=== PATIENT | male | born 1930 | race Caucasian/White ===

== ENCOUNTER 2016-07-03 08:28 | Day surgery (SDC) | payer MEDICARE ==
--- NOTE | 2016-07-02 23:36 | Pre-Procedure Note/Attestation ---
Pre-Procedure Note/Attestation Complete Prior to Procedure Planned Procedure: right - Removal of cataract and placement of intraocular lens, RIGHT EYE Procedure Narrative: Removal of cataract and placement of intraocular lens, RIGHT EYE Indications for Procedure Pre-Operative Diagnosis: Cataract, senile, right eye Attestation I attest that I discussed the nature of the procedure; its benefits; risks and complications; and alternatives (and the risks and benefits of such alternatives ), prior to the procedure, with the patient (or the patient's legal welding equipment sales representative). I attest that, if there was a reasonable possibility of needing a blood transfusion, the patient (or the patient's legal welding equipment sales representative) was given the [place] Department [employer] Services standardized written summary, pursuant to the [place] Blood Safety Act ([place] Health and Safety Code # 1645, as amended). I attest that I re-evaluated the patient just prior to the surgery and that there has been no change in the patient's H&P, except as documented below: Luis Alberto Veliz MD July 02, 2016 23:36
[2016-07-03] VITALS (9 sets, daily range): BP systolic 142–165; BP diastolic 71–90
[~2016-07-03] VITALS: Ht 182.9 cm; Wt 86.2 kg
[2016-07-03] MEDS ORDERED: TAMSULOSIN HCL0.4 MG ORAL (09:42)
[2016-07-03] MEDS ORDERED: PROSCAR5 MG ORAL (09:42)
[2016-07-03] MEDS ORDERED: LIVALO2 MG PO (09:42)
[2016-07-03] MEDS ORDERED: LEXAPRO10 MG ORAL (09:42)
[2016-07-03] MEDS ORDERED: VITAMIN E400 UNI6 PO (09:42)
[2016-07-03] MEDS ORDERED: LOSARTAN POTASS50 MG ORAL (09:42)
[2016-07-03] MEDS ORDERED: ASPIR 8181 MG ORAL (09:42)
[2016-07-03] MEDS ORDERED: VITAMIN D1000 UNI1 ORAL (09:42)
[2016-07-03] MEDS ORDERED: FLECAINIDE ACE100 MG ORAL (09:42)
[2016-07-03] MEDS ORDERED: WARFARIN SODIUM5 MG ORAL (09:42)
[2016-07-03] MEDS ORDERED: ANTIOXIDANT SO1 EACH PO (09:44)
[2016-07-03] MEDS ORDERED: LORATADINE10 M2 PO (09:44)
[2016-07-03] MEDS: Akten 3.5% 1ml Btl RIGHT EYE SCH ×3 (10:16→10:33)
[2016-07-03] MEDS ORDERED: Akten 3.5% 1ml Btl ONE (10:17)
[2016-07-03] MEDS ORDERED: Cyclopentolate 1% Opth Sol ONE (10:17)
[2016-07-03] MEDS ORDERED: Gatifloxacin Opth Solution 0.5% ONE (10:17)
[2016-07-03] MEDS ORDERED: Flurbiprofen 0.03% Opth Sol 2.5ml ONE (10:17)
[2016-07-03] MEDS ORDERED: Phenylephrine 10% Opth Soln 5ml ONE (10:17)
[2016-07-03] MEDS: Flurbiprofen 0.03% Opth Sol 2.5ml RIGHT EYE SCH ×3 (10:20→10:33)
[2016-07-03] MEDS: Cyclopentolate 1% Opth Sol RIGHT EYE SCH ×3 (10:20→10:33)
[2016-07-03] MEDS: Gatifloxacin Opth Solution 0.5% RIGHT EYE SCH ×3 (10:21→10:34)
[2016-07-03] MEDS: Phenylephrine 10% Opth Soln 5ml RIGHT EYE SCH ×3 (10:21→10:34)
[2016-07-03] MEDS ORDERED: BSS 500ml btl ONE (10:54)
[2016-07-03] MEDS ORDERED: Lidocaine 1% MPF 10mg/ml 5ml ONE (10:54)
[2016-07-03] MEDS ORDERED: Maxitrol Opth Oint 3.5gm ONE (10:54)
[2016-07-03] MEDS ORDERED: Tetracaine 0.5% Opth Soln ONE ×2 (10:55→12:13)
[2016-07-03] MEDS ORDERED: Timolol 0.5% Op Soln 2.5ml ONE (10:55)
[2016-07-03] MEDS ORDERED: Dexamethasone 4mg/ml vial ONE (10:55)
[2016-07-03] MEDS ORDERED: Lidocaine 2% MPF 5ml Vial INJ ONE (10:56)
[2016-07-03] MEDS ORDERED: EPINEPHrine 1mg/1ml Amp ONE ×2 (10:56→11:50)
[2016-07-03] MEDS ORDERED: Acetylcholine Injection (OR) ONE (10:57)
[2016-07-03] MEDS ORDERED: Sodium Hyaluronate 14 mg/ml 0.85ml ONE (10:57)
[2016-07-03] MEDS ORDERED: Bupivacaine 0.75% 30ml vial INJ ONE (10:57)
[2016-07-03] MEDS ORDERED: BSS 15ml BTL ONE ×2 (10:57→11:50)
[2016-07-03] MEDS ORDERED: Povidone-Iodine 5% opth solution ONE (10:58)
[2016-07-03] MEDS ORDERED: LR 1000ml ONE (11:45)
[2016-07-03] MEDS ORDERED: Midazolam 2mg/2ml Inj ONE (11:45)
[2016-07-03] MEDS ORDERED: fentaNYL 100 mcg/2 mL IV ONE (11:45)
[2016-07-03] MEDS ORDERED: NS Irrig 1000ml ONE (11:45)
[2016-07-03] MEDS ORDERED: Propofol 10mg/ml 20ml IV ONE (11:45)
[2016-07-03] MEDS ORDERED: Sterile Water Irrig 1000ml IRRIG ONE (11:45)
[2016-07-03] MEDS ORDERED: Lidocaine 4% Amp ONE (11:50)
--- NOTE | 2016-07-03 11:50 | Anethesia Preoperative Eval ---
Anesthesia Pre-op PMH/ROS General Date of Evaluation: July 03, 2016 Time of Evaluation: 11:40 Anesthesiologist: Latricia ASA Score: ASA 3 Mallampati Score Class I : Soft palate, uvula, fauces, pillars visible Class II: Soft palate, uvula, fauces visible Class III: Soft palate, base of uvula visible Class IV: Only hard plate visible Mallampati Classification: Class II Surgeon: Keren Diagnosis: R eye cataract Surgical Procedure: R eye cataract extraction Anesthesia History: none Family History: no anesthesia problems Allergies: Coded Allergies: IODINE (Verified Allergy, Severe, 07/03/16) throat and eyes swell, cannot breathe Medications: see eMAR Past Medical History Cardiovascular: Reports: CAD - stable coronary stent in place, HTN Pulmonary: Denies: COPD, REECE, asthma, other Gastrointestinal/Genitourinary: Reports: GERD, Denies: CRI, ESRD, other Neurologic/Psychiatric: Denies: CVA, TIA, dementia, depression/anxiety, other Endocrine: Denies: DM, hypothyroidism, other, steroids HEENT: Reports: cataract (L), cataract (R), Denies: MARSHALL (L), MARSHALL (R), glaucoma, other Hematology/Immune: Denies: DVT, anemia, bleeding disorder, other Musculoskeletal/Integumentary: Reports: DJD, Denies: DDD, OA, RA, edema, other PMH Narrative: as above PSxH Narrative: hernia repair, coronary angiogram Anesthesia Pre-op Phys. Exam Physician Exam Last Vital Signs Date Time Temp Pulse Resp B/P Pulse Ox O2 Delivery O2 Flow Rate FiO2 07/03/16 09:27 97.3 57 20 149/75 96 Room Air Constitutional: NAD Neurologic: CN 2-12 intact Cardiovascular: RRR, no M/R/G Respiratory: CTA Gastrointestinal: S/NT/ND Airway Exam Mallampati Score: Class II Neck: stiff ROM: limited Teeth: missing Dentures: no lower, no upper Anesthesia Pre-op A/P Labs see chart Studies Pre-op Studies: EKG - NSR Risk Assessment & Plan Assessment: ASA 3 Plan: MAC Status Change Before Surgery: No Pre-Antibiotics Drug: none SUZIE PRICE M.D. July 03, 2016 11:50
[2016-07-03] MEDS ORDERED: LR 1000ml 1,000 ML IVLG SCH (12:08)
[2016-07-03] MEDS ORDERED: Pred Forte 1% Opth Susp 1ml ONE (12:13)
[2016-07-03] MEDS ORDERED: fentaNYL 100 mcg/2 mL IV PRN (12:15)
[2016-07-03] MEDS ORDERED: DiphenhydrAMINE 50mg/ml Inj IVP PRN (12:15)
--- NOTE | 2016-07-03 13:04 | Discharge Instructions ---
Discharge Instructions Discharge Instructions Follow Up Orders continue preop eye drops wear shield at all times except to place eye drops For Congestive Heart Failure Reminder Report to your physician any weight gain of 5 pounds or more in one week. Luis Alberto Veliz MD July 03, 2016 13:04
--- NOTE | 2016-07-03 13:04 | Brief Operative Note ---
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
--- NOTE | 2016-07-03 13:18 | Immediate Post-Op Evaluation ---
Immediate Post-Op Evalulation Immediate Post-Op Evalulation Procedure: L eye cataract extraction witn IOL Date of Evaluation: July 03, 2016 Time of Evaluation: 12:46 IV Fluids: 200 Blood Products: none Estimated Blood Loss: none Urinary Output: none Blood Pressure Systolic: 136 Blood Pressure Diastolic: 72 Pulse Rate: 62 Respiratory Rate: 20 O2 Sat by Pulse Oximetry: 99 Temperature (Fahrenheit): 97.6 Pain Score (1-10): 2 Nausea: No Vomiting: No Complications none Patient Status: awake, patent, none Hydration Status: adequate SUZIE PRICE M.D. July 03, 2016 13:18
--- NOTE | 2016-07-03 14:43 | 48 Hour Post Anesthesia Eval ---
Post Anesthesia Evaluation Procedure: L eye cataract extraction witn IOL Date of Evaluation: July 03, 2016 Time of Evaluation: 14:42 Blood Pressure Systolic: 142 0: 71 Pulse Rate: 64 Respiratory Rate: 20 Temperature (Fahrenheit): 97.6 O2 Sat by Pulse Oximetry: 98 Airway: patent Nausea: No Vomiting: No Pain Intensity: 2 Hydration Status: adequate Cardiopulmonary Status: stable Mental Status/LOC: patient returned to baseline Follow-up Care/Observations: n/a Post-Anesthesia Complications: none Follow-up care needed: ready to discharge SUZIE PRICE M.D. July 03, 2016 14:43
[2016-07-03] MEDS ORDERED: Sodium Hyaluronate 10 mg/ml 0.85ml ONE (15:21)
--- NOTE | 2016-07-06 23:01 | Operative Note - Dictated ---
DATE OF OPERATION: 07/03/2016 SURGEON: Luis Alberto Veliz M.D. LEGAL ADVISER SURGEON: None. ANESTHESIOLOGIST: Oziel Rome M.D. ANESTHESIA: Local/standby/monitored anesthesia care. PREOPERATIVE DIAGNOSES: 1. Cataract, nuclear, right eye. 2. 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 POSTOPERATIVE DIAGNOSES: 1. Cataract, nuclear, right eye. 2. 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 PROCEDURES: 1. Phacoemulsification of cataract, right eye. 2. Placement of posterior chamber intraocular lens, right eye (Model Aristeo [id number], power 23.0). 3. Use of Malyugin ring, 7.0. SPECIMENS: None. COMPLICATIONS: None. INDICATIONS FOR SURGERY: The patient has had painless progressive decrease in visual acuity in the right eye secondary to cataract. The patient understands the risk of surgery including infection, bleeding, need for further surgery, loss of vision, no improvement in vision, loss of the eye, loss of life, glaucoma, retinal detachment and understands these risks and elects to proceed with surgery. FINDINGS: The patient had a +3 to 4 nuclear sclerotic cataract in the right eye. Operative Note: After informed consent was obtained, the patient was brought into the operating room and placed in the supine position. A time-out was performed and all criteria were met and everyone in the room agreed. The patient sat up, and previously tetracaine drops were placed in both eyes. The surface of the eye was marked at the 3 o'clock, 9 o'clock, and 12 o'clock limbus. The right eye was then draped and prepped in sterile manner for ocular surgery. A lid speculum was placed in the eye. A 1% lidocaine preservative-free was injected at the 10 o'clock limbus. A conjunctival peritomy from approximately 9:30 to 5 o'clock was made and dissected posteriorly. Hemostasis was maintained with bipolar cautery. A 2.6 mm limbal incision was made and centered approximately 9:30 o'clock and dissected anteriorly. A paracentesis was made at approximately 12 o'clock and Shugarcaine was injected into the anterior chamber followed by Healon. The anterior chamber was then entered using a 2.6 mm keratome through the limbal incision. The pupil is miotic at approximately 4.5 to 5 mm and Malyugin ring was then injected into the anterior chamber after more Healon was injected into the anterior chamber. The ring was sucked into the pupillary margin at 4 points. An anterior capsulorrhexis was then performed. Hydrodissection and hydrodelineation of the lens was then performed. The lens was then phacoemulsified using divide and conquer four-quadrant technique. Residual cortical material was then aspirated. The lens was taken from its package, placed into the cartridge and the tip of the cartridge was placed through the limbal incision. The lens was injected into the capsular bag and centered nicely with a [place] hook. Healon was aspirated from the anterior chamber and capsular bag. The lens was rotated such that it was in the 12 o'clock meridian. This was noted at the beginning of case prior to making any incisions where the 12 o'clock meridian was made using the markers. The lens was rotated such that it was at the approximately 12 o'clock meridian. One 10-0 nylon interrupted suture was then placed. The knot was rotated and buried. Care was taken during the entire procedure not to touch the endothelium. Healon had been removed previously and the posterior chamber intraocular lens, was again noted to be at the 12-degree meridian. The Malyugin ring was removed just prior to taking up the Healon. All wounds were checked and found to be watertight. The conjunctiva was then closed with forceps cautery. The lid speculum and drapes were removed from the eye and drops of gatifloxacin, Pred Forte, and Maxitrol ointment were applied to the eye followed by a shield. The patient tolerated the procedure well and left the operating room awake in stable condition. Luis Alberto Veliz M.D. DR: YESI JOB#: [id number] CC:
== END 2016-07-03 14:20 | disposition home or self-care (01) ==
LOC: SUR 08:28
DX: H25.11 Age-related nuclear cataract, right eye (principal); H57.03 Miosis; I25.10 Atherosclerotic heart disease of native coronary artery without angina pectoris; I10 Essential (primary) hypertension; K21.9 Gastro-esophageal reflux disease without esophagitis; M19.90 Unspecified osteoarthritis, unspecified site; Z91.041 Radiographic dye allergy status
CPT/HCPCS: 66982; J0171; J1100; J2250; J2704; J3010; J7120; V2632; 94003; 94150